=== PATIENT | female | born 1975 | race African-American/Black ===

== ENCOUNTER 2017-10-12 09:08 | Emergency (ER) | payer OTHER ==
[2017-10-12 10:27] LABS: Absolute Lymphocytes (CBC) 2.4 K/uL (0.7-4.9); Absolute Monocytes 0.4 K/uL (0.1-1.3); Absolute Neutrophil 3.7 K/uL (1.8-8.0); Basophils % 1.4 % (0-1.3); Eosinophils % 1.7 % (0-4.4); MCV 94.3 fL (80-100); MPV 8.6 fL (7.6-11.3); Monocytes % 5.7 % (3.3-12.3); RBC Red Blood Cell Count 4.45 M/uL (3.86-4.86)
[2017-10-12] MEDS ORDERED: NA CHLORIDE 0.9% 1,000 ML ONE (10:27)
[2017-10-12] MEDS ORDERED: ASPIRIN 81 MG CHEWABLE TABLET ONE (10:27)
--- NOTE | 2017-10-12 10:36 | RAD REPORT ---
EXAM DESCRIPTION: RAD - Chest Single View - 10/12/2017 10:29 am CLINICAL HISTORY: Chest pain. COMPARISON: 08/26/2013 FINDINGS: Portable technique limits examination quality. The lungs are grossly clear. The heart is normal in size. No displaced fractures. IMPRESSION: No acute intrathoracic process suspected.
[2017-10-12 10:43] LABS: Bicarbonate 28 mEq/L (21-31); Glucose Level 100 mg/dL (65-120); Sodium Level 138 mEq/L (135-145)
[2017-10-12 10:49] LABS: ALT/SGPT 18 IU/L (10-60); AST/SGOT 17 IU/L (10-42); Albumin 3.9 g/dL (3.2-5.5); Alkaline Phosphatase 78 IU/L (42-121); BUN Blood Urea Nitrogen 16 mg/dL (6-20); Bilirubin Direct 0.1 mg/dL (0-0.2); Bilirubin Total 0.3 mg/dL (0.3-1.2); CKMB Creatine Kinase MB 1.2 ng/ml (0.3-4.0); Creatine Phosphokinase 99 IU/L (22-269); Magnesium 1.8 mg/dL (1.8-2.5); Protein, Total 7.5 g/dL (6.0-8.3)
[2017-10-12 11:08] LABS: Protime INR 1.04
[2017-10-12] MEDS ORDERED: KETOROLAC 30 MG/ML INJ ONE (12:30)
[2017-10-12 12:32] LABS: Urine Blood TRACE (NEG); Urine Glucose NEGATIVE (NEG); Urine Protein NEGATIVE (NEG); Urine Specific Gravity >1.030 (1.005-1.030)
--- NOTE | 2017-10-12 13:37 | ER ---
Nurse's Notes [facility] Name: Katherine Lopez Age: 42 yrs Sex: Female : 1975 Arrival Date: 10/12/2017 Time: 09:11 Bed 15 Private MD: Rosario Lux K Diagnosis: Chest pain, unspecified Presentation: 10/12 09:34 Presenting complaint: Patient states: " I have been having chest pain for about a week ph now. This morning it was worse and was going into my left arm, I went to Dr Lux's office and she said to come here." Pt reports intermittent pain in L chest, radiating to L arm x 1 week, also reports intermittent diaphoresis and mild SOB, denies N/V. Transition of care: patient was not received from another setting of care. Onset of symptoms was October 12, 2017. Risk Assessment: Do you want to hurt yourself or someone else? Patient reports no desire to harm self or others. Initial Sepsis Screen: Does the patient meet any 2 criteria? No. Patient's initial sepsis screen is negative. Does the patient have a suspected source of infection? No. Patient's initial sepsis screen is negative. Care prior to arrival: None. 09:34 Method Of Arrival: Ambulatory ph 09:34 Acuity: KATRINA 3 ph VERIFICATION LEAD: 09:38 LMP N/A - Post-menopause ph Historical: - Allergies: 09:39 No Known Allergies; ph - Home Meds: 09:39 None [Active]; ph - PMHx: 09:39 None; ph - PSHx: 09:39 Hysterectomy; breast reduction; Knee surgery; ph - Immunization history:: Adult Immunizations up to date. - Social history:: Smoking status: Patient/guardian denies using tobacco. - Ebola Screening: : No symptoms or risks identified at this time. Screenin:40 Abuse screen: Denies threats or abuse. Denies injuries from another. Nutritional ph screening: No deficits noted. Tuberculosis screening: No symptoms or risk factors identified. Fall Risk None identified. Assessment: 09:40 General: Appears in no apparent distress. comfortable, obese, well groomed, Behavior is ph calm, cooperative, appropriate for age, Denies fever, feeling ill. Pain: Complains of pain in anterior aspect of left upper chest and left breast Pain radiates to left arm Pain began " 1 week ago" Is intermittent. Neuro: Level of Consciousness is awake, alert, obeys commands, Oriented to person, place, time, situation. Cardiovascular: Reports chest pain, diaphoresis, shortness of breath, Denies lightheadedness, nausea, palpitations, vomiting, Capillary refill < 3 seconds Patient's skin is warm and dry. Chest pain is located in left anterior chest wall radiates to left arm(s). Respiratory: Airway is patent Respiratory effort is even, unlabored, Respiratory pattern is regular, symmetrical, Denies cough, pain with respiration, pain with movement. GI: No signs and/or symptoms were reported involving the gastrointestinal system. Derm: Skin is intact, is healthy with good turgor, Skin is pink, warm \\T\\ dry. 13:59 Reassessment: Patient appears in no apparent distress at this time. No changes from aj previously documented assessment. Patient and/or family updated on plan of care and expected duration. Pain level reassessed. Patient is alert, oriented x 3, equal unlabored respirations, skin warm/dry/pink. Patient states feeling better. Patient states symptoms have improved. Vital Signs: 09:38 BP 136 / 94; Pulse 72; Resp 18; Temp 97.7(TE); Pulse Ox 100% on R/A; Weight 112.49 kg; ph Height 5 ft. 3 in. (160.02 cm); 10:30 BP 120 / 83; Pulse 78; Resp 16; Pulse Ox 100% on R/A; mh5 11:43 BP 111 / 75; Pulse 72; Resp 17; Pulse Ox 100% on R/A; mh5 12:49 BP 115 / 85; Pulse 86; Resp 16; Pulse Ox 99% on R/A; aj 13:59 BP 112 / 72; Pulse 82; Resp 20; Pulse Ox 99% on R/A; aj 09:38 Body Mass Index 43.93 (112.49 kg, 160.02 cm) ph ED Course: 09:11 Patient arrived in ED. mr 09:11 Rosario Lux MD is Private Physician. mr 09:38 Triage completed. ph 09:42 Arm band placed on. ph 09:42 Patient has correct armband on for positive identification. Placed in gown. Bed in low ph position. Call light in reach. Side rails up X 1. rn informatics on. Pulse ox on. NIBP on. Warm blanket given. 09:42 Patient maintains SpO2 saturation greater than 95% on room air. ph 10:00 EKG done, by automation technologist. reviewed by Sudheer Perez MD. at1 10:10 Sudheer Sibley PA is PHCP. cp 10:10 Sudheer Perez MD is Attending Physician. cp 10:28 X-ray completed. Portable x-ray completed in exam room. Patient tolerated procedure ml well. 10:29 XRAY Chest (1 view) In Process Unspecified. EDMS 10:30 Hermila Allen, RN is Primary Nurse. aj 10:57 Initial lab(s) drawn, by nv, sent to lab. Urine collected: clean catch specimen, clear. mh5 Inserted saline lock: 20 gauge in right antecubital area, using aseptic technique. Blood collected. 13:14 EKG done, by automation technologist. reviewed by Sudheer Perez MD. at1 13:35 Rosario Lux MD is Referral Physician. cp 13:59 No provider procedures requiring assistance completed. IV discontinued, intact, aj bleeding controlled, No redness/swelling at site. Pressure dressing applied. Administered Medications: 10:31 Drug: Aspirin Chewable Tablet 324 mg Route: PO; aj 12:58 Follow up: Response: No adverse reaction aj 10:31 Drug: NS 0.9% 1000 ml Route: IV; Rate: 1 bolus; Site: left antecubital; aj 13:51 Follow up: Response: No adverse reaction; IV Status: Completed infusion; IV Intake: aj 1000ml 12:50 Drug: TORadol 30 mg Route: IVP; Site: right antecubital; aj 12:58 Follow up: Response: Pain is decreased aj Intake: 13:51 IV: 1000ml; Total: 1000ml. aj Outcome: 13:35 Discharge ordered by . cp 13:59 Discharged to home ambulatory. aj 13:59 Condition: good 13:59 Discharge instructions given to patient, Instructed on discharge instructions, follow up and referral plans. medication usage, Demonstrated understanding of instructions, follow-up care, medications, Prescriptions given X 1. 14:01 Patient left the ED. aj Signatures: Dispatcher [employer] EDMS Hermila Allen, RN RN Mitra Presley, Hermila Clinton, efficiency miner blasting EKG Tat1 Layla Palumbo RN RN ph Sudheer Sibley PA PA cp [place] [id number]
--- NOTE | 2017-10-12 13:37 | EDPHYS ---
Physician Documentation [facility] Name: Katherine Lopez Age: 42 yrs Sex: Female : 1975 Arrival Date: 10/12/2017 Time: 09:11 Bed 15 Private MD: Rosario Lux K ED Physician Sudheer Perez HPI: 10/12 10:20 This 42 yrs old Black Female presents to ER via Ambulatory with complaints of Chest cp Pain. 10:20 The patient or guardian reports chest pain that is located primarily in the anterior cp chest wall, bilaterally. Onset: 1 week(s) ago, and became persistent yesterday, returned yesterday. The pain radiates to the left arm. Associated signs and symptoms: Pertinent positives: lower extremity swelling, Pertinent negatives: abdominal pain, cough, diaphoresis, headache, lower extremity pain, palpitations, recent travel, shortness of breath, syncope. The chest pain is described as a pressure. Duration: The patient or guardian reports multiple episodes, that wax and wane, with no pattern. Modifying factors: the symptoms are aggravated by nothing. 10:20 Severity of pain: in the emergency department the pain is unchanged. cp SOCIAL SERVICES DESIGNEE: 09:38 LMP N/A - Post-menopause ph Historical: - Allergies: 09:39 No Known Allergies; ph - Home Meds: 09:39 None [Active]; ph - PMHx: 09:39 None; ph - PSHx: 09:39 Hysterectomy; breast reduction; Knee surgery; ph - Immunization history:: Adult Immunizations up to date. - Social history:: Smoking status: Patient/guardian denies using tobacco. - Ebola Screening: : No symptoms or risks identified at this time. ROS: 10:25 Constitutional: Negative for body aches, chills, fever, poor PO intake. cp 10:25 Eyes: Negative for injury, pain, redness, and discharge. cp 10:25 ENT: Negative for drainage from ear(s), ear pain, sore throat, difficulty swallowing, cp difficulty handling secretions. 10:25 Neck: Negative for pain with movement, pain at rest, stiffness, bony tenderness. cp 10:25 Cardiovascular: Positive for chest pain, Negative for edema, palpitations. 10:25 Respiratory: Negative for cough, shortness of breath, wheezing. 10:25 Abdomen/GI: Negative for abdominal pain, vomiting, diarrhea, constipation, anorexia, black/tarry stool, rectal bleeding. 10:25 Back: Negative for pain at rest, pain with movement, radiated pain. 10:25 : Negative for urinary symptoms. 10:25 Skin: Negative for cellulitis, rash. 10:25 Neuro: Negative for altered mental status, headache, syncope, near syncope, weakness. 10:25 All other systems are negative. Exam: 10:38 ECG was reviewed by the Attending Physician. cp 10:39 Head/Face: Normocephalic, atraumatic. Eyes: Pupils equal round and reactive to light, cp extra-ocular motions intact. Lids and lashes normal. Conjunctiva and sclera are non-icteric and not injected. Cornea within normal limits. Periorbital areas with no swelling, redness, or edema. ENT: Nares patent. No nasal discharge, no septal abnormalities noted. Tympanic membranes are normal and external auditory canals are clear. Oropharynx with no redness, swelling, or masses, exudates, or evidence of obstruction, uvula midline. Mucous membranes moist. Neck: Trachea midline, no thyromegaly or masses palpated, and no cervical lymphadenopathy. Supple, full range of motion without nuchal rigidity, or vertebral point tenderness. No Meningismus. Chest/axilla: Normal chest wall appearance and motion. Nontender with no deformity. No lesions are appreciated. 10:39 Constitutional: The patient appears in no acute distress, alert, awake, non-diaphoretic, non-toxic, well developed, well nourished, overweight 10:39 Cardiovascular: Rate: normal, Rhythm: regular, Pulses: Pulses are 2+ in right radial artery and left radial artery. Edema: is not appreciated, JVD: is not appreciated. 10:39 Respiratory: the patient does not display signs of respiratory distress, Respirations: normal, no use of accessory muscles, no retractions, no splinting, no tachypnea, labored breathing, is not present, Breath sounds: are clear throughout, no decreased breath sounds, no stridor, no wheezing. 10:39 Abdomen/GI: Inspection: obese Bowel sounds: active, all quadrants, Palpation: abdomen is soft and non-tender, in all quadrants, rebound tenderness, is not appreciated, voluntary guarding, is not appreciated, involuntary guarding, is not appreciated. 10:39 Back: pain, is absent, ROM is normal. 10:39 Skin: cellulitis, is not appreciated, no rash present. 13:05 ECG was reviewed by the Attending Physician. cp Vital Signs: 09:38 BP 136 / 94; Pulse 72; Resp 18; Temp 97.7(TE); Pulse Ox 100% on R/A; Weight 112.49 kg; ph Height 5 ft. 3 in. (160.02 cm); 10:30 BP 120 / 83; Pulse 78; Resp 16; Pulse Ox 100% on R/A; mh5 11:43 BP 111 / 75; Pulse 72; Resp 17; Pulse Ox 100% on R/A; mh5 12:49 BP 115 / 85; Pulse 86; Resp 16; Pulse Ox 99% on R/A; aj 13:59 BP 112 / 72; Pulse 82; Resp 20; Pulse Ox 99% on R/A; aj 09:38 Body Mass Index 43.93 (112.49 kg, 160.02 cm) ph MDM: 10:11 Patient medically screened. cp 13:35 The patient was given aspirin in the Emergency Department. Data reviewed: vital signs, cp nurses notes, lab test result(s), EKG, radiologic studies, plain films, and as a result, I will discharge patient. 13:35 Test interpretation: by ED physician or midlevel provider: ECG, plain radiologic cp studies. Counseling: I had a detailed discussion with the patient and/or guardian regarding: the historical points, exam findings, and any diagnostic results supporting the discharge/admit diagnosis, lab results, radiology results, the need for outpatient follow up, a family practitioner. Response to treatment: the patient's symptoms have markedly improved after treatment, and as a result, I will discharge patient. Special discussion: Based on the patient's history, exam, and Dx evaluation, there is no indication for emergent intervention or inpatient Tx. It is understood by the patient/guardian that if the Sx's persist or worsen they need to return immediately for re-evaluation. 10/12 09:44 Order name: Basic Metabolic Panel; Complete Time: 11:00 ph 10/12 09:44 Order name: BNP; Complete Time: 11:00 ph 10/12 09:44 Order name: CBC with Diff; Complete Time: 11:00 ph 10/12 11:00 Interpretation: Normal except: BASO% 1.4. 10/12 09:44 Order name: Ckmb; Complete Time: 11:00 ph 10/12 09:44 Order name: CPK; Complete Time: 11:00 ph 10/12 09:44 Order name: LFT's; Complete Time: 11:00 ph 10/12 11:00 Interpretation: Normal except: GLOB 3.6. 10/12 09:44 Order name: Magnesium; Complete Time: 11:00 ph 10/12 09:44 Order name: PT-INR; Complete Time: 11:11 ph 10/12 11:11 Interpretation: Reviewed. 10/12 09:44 Order name: Ptt, Activated; Complete Time: 11:11 ph 10/12 11:11 Interpretation: Reviewed. 10/12 09:44 Order name: Troponin (emerg Dept Use Only); Complete Time: 11:00 ph 10/12 11:00 Interpretation: TROPED < 0.03; Reviewed. 10/12 09:44 Order name: XRAY Chest (1 view); Complete Time: 11:00 ph 10/12 12:27 Order name: Urine Dipstick--Ancillary (enter results); Complete Time: 13:34 ag 10/12 12:27 Order name: Urine --Ancillary (enter results); Complete Time: 13:34 ag 10/12 12:48 Order name: Troponin I; Complete Time: 13:34 cp 10/12 13:34 Interpretation: TROP < 0.03; Reviewed. 10/12 09:44 Order name: Urine Test (obtain specimen); Complete Time: 13:52 ph 10/12 09:44 Order name: EKG; Complete Time: 09:44 ph 10/12 09:44 Order name: Cardiac monitoring; Complete Time: 13:51 ph 10/12 09:44 Order name: EKG - Nurse/Tech; Complete Time: 13:51 ph 10/12 09:44 Order name: IV Saline Lock; Complete Time: 13:51 ph 10/12 09:44 Order name: Labs collected and sent; Complete Time: 13:51 ph 10/12 09:44 Order name: O2 Per Protocol; Complete Time: 13:51 ph 10/12 09:44 Order name: O2 Sat Monitoring; Complete Time: 13:51 ph 10/12 09:44 Order name: Urine Dipstick-Ancillary (obtain specimen); Complete Time: 13:51 ph 10/12 12:48 Order name: EKG; Complete Time: 12:48 cp 10/12 12:48 Order name: EKG - Nurse/Tech; Complete Time: 12:58 cp EC:38 Rate is 68 beats/min. Rhythm is regular. NE interval is normal. QRS interval is normal. cp QT interval is normal. No ST changes noted. Interpreted by me. Reviewed by me. 13:05 Rate is 68 beats/min. Rhythm is regular. NE interval is normal. QRS interval is normal. cp No ST changes noted. Interpreted by me. Reviewed by me. Administered Medications: 10:31 Drug: Aspirin Chewable Tablet 324 mg Route: PO; aj 12:58 Follow up: Response: No adverse reaction aj 10:31 Drug: NS 0.9% 1000 ml Route: IV; Rate: 1 bolus; Site: left antecubital; aj 13:51 Follow up: Response: No adverse reaction; IV Status: Completed infusion; IV Intake: aj 1000ml 12:50 Drug: TORadol 30 mg Route: IVP; Site: right antecubital; aj 12:58 Follow up: Response: Pain is decreased aj Disposition: 10/12/17 13:35 Discharged to Home. Impression: Chest pain, unspecified. - Condition is Stable. - Discharge Instructions: Nonspecific Chest Pain, Aspirin and Your Heart. - Prescriptions for Ibuprofen 800 mg Oral Tablet - take 1 tablet by ORAL route every 8 hours As needed take with food; 30 tablet. - Medication Reconciliation Form, Thank You Letter, Antibiotic Education, Prescription Opioid Use form. - Follow up: Rosario Lux MD; When: 2 - 3 days; Reason: Recheck today's complaints. - Problem is new. - Symptoms have improved. Addendum: 10/16/2017 08:47 Co-signature as Attending Physician, Sudheer Perez MD I agree with the assessment and c corcoran plan of care. Signatures: Dispatcher [employer] Hermila Donnelly RN RN aj Anderson, Corey, MD MD cha Hall, Patricia, RN RN Sudheer Dye PA PA cp Corrections: (The following items were deleted from the chart) 10/12 14:01 13:35 10/12/2017 13:35 Discharged to Home. Impression: Chest pain, unspecified. aj Condition is Stable. Forms are Medication Reconciliation Form, Thank You Letter, Antibiotic Education, Prescription Opioid Use. Follow up: Rosario Lux; When: 2 - 3 days; Reason: Recheck today's complaints. Problem is new. Symptoms have improved. cp
[2017-10-12 14:33] VITALS: TEMP 97.7
[2017-10-12 14:36] VITALS: O2SAT 99
[2017-10-12 14:37] VITALS: BP 112/72
--- NOTE | 2017-10-12 17:38 | EKG ---
Test Date: 2017-10-12 Test Time: 12:56:47 Durability Engineer: BROOK MEASUREMENT RESULTS: Intervals: Rate: 68 DC: 160 QRSD: 80 QT: 394 QTc: 418 [place]: P: 25 DC: 160 QRS: -1 T: 1 INTERPRETIVE STATEMENTS: Normal sinus rhythm Normal ECG Compared to ECG 10/12/2017 09:56:28 Left ventricular hypertrophy no longer present Myocardial infarct finding no longer present Electronically Signed On 10-12-17 17:36:44 CDT by Marky Finnegan
--- NOTE | 2017-10-12 17:39 | EKG ---
Test Date: 2017-10-12 Test Time: 09:56:28 Planner Intern: BROOK MEASUREMENT RESULTS: Intervals: Rate: 68 PA: 148 QRSD: 82 QT: 394 QTc: 418 [place]: P: 29 PA: 148 QRS: -1 T: 4 INTERPRETIVE STATEMENTS: Normal sinus rhythm Minimal voltage criteria for LVH, may be normal variant Cannot rule out Anterior infarct, age undetermined Abnormal ECG No previous ECG available for comparison Electronically Signed On 10-12-17 17:36:55 CDT by Marky Finnegan
== END 2017-10-12 14:01 | disposition home or self-care (01) ==
LOC: ER 09:08
DX: R07.9 Chest pain, unspecified (principal)
CPT/HCPCS: 36415; 71045; 80048; 80076; 81003; 81025; 82550; 82553; 83735; 83880; 84484; 85025; 85610; 85730; 93005; 96361; 96374; 99285; J7030